=== PATIENT | male | born 1955 | race Caucasian/White ===

== ENCOUNTER 2018-07-17 11:13 | Emergency (ER) | payer OTHER ==
[~2018-07-17] VITALS: Ht 175.3 cm; Wt 83.9 kg
[~2018-07-17 11:13] MED LIST: CRESTOR10 MG PO; IBUPROFEN 800800 M1 PO; JANUMET XR 50-1 EAC1; MICARDIS 80 MG80 MG; NORCO 5-325 TA1 EACH PO; REQUIP3 MG; ZOLOFT50 MG
[2018-07-17] MEDS ORDERED: FARXIGA10 MG PO (11:39)
[2018-07-17] MEDS ORDERED: ZOFRAN4 MG PO (12:35)
[2018-07-17 13:06] VITALS: BP 145/84
== END 2018-07-17 13:07 | disposition home or self-care (01) ==
LOC: M.ERS 11:13
DX: S06.0X1A Concussion with loss of consciousness of 30 minutes or less, initial encounter (principal); S63.592A Other specified sprain of left wrist, initial encounter; F17.200 Nicotine dependence, unspecified, uncomplicated; E78.00 Pure hypercholesterolemia, unspecified; E11.9 Type 2 diabetes mellitus without complications; G25.81 Restless legs syndrome; Z90.79 Acquired absence of other genital organ(s); Z85.46 Personal history of malignant neoplasm of prostate; Y04.2XXA Assault by strike against or bumped into by another person, initial encounter; Y92.89 Other specified places as the place of occurrence of the external cause; Y99.0 Civilian activity done for income or pay; Y99.8 Other external cause status

== ENCOUNTER 2019-01-29 12:52 | Emergency (ER) | payer OTHER ==
[~2019-01-29] VITALS: Ht 177.8 cm; Wt 86.2 kg
[~2019-01-29 12:52] MED LIST changes: +FARXIGA10 MG PO; +ZOFRAN4 MG PO
[2019-01-29] MEDS ORDERED: TRULICITY0.75 MG/0. (13:07)
[2019-01-29] MEDS ORDERED: METFORMIN HCL500 M3 PO (13:07)
[2019-01-29] MEDS ORDERED: REQUIP 1 MG TABL1 M1 PO (13:07)
[2019-01-29] MEDS ORDERED: MEDROL DOSPAK21 TA1 PO (13:16)
[2019-01-29 13:18] VITALS: BP 147/101
== END 2019-01-29 13:19 | disposition home or self-care (01) ==
LOC: M.ERS 12:52
DX: L25.9 Unspecified contact dermatitis, unspecified cause (principal); E11.9 Type 2 diabetes mellitus without complications; E78.00 Pure hypercholesterolemia, unspecified; I10 Essential (primary) hypertension; G47.30 Sleep apnea, unspecified; G25.81 Restless legs syndrome; F17.210 Nicotine dependence, cigarettes, uncomplicated; Z90.79 Acquired absence of other genital organ(s); Z85.46 Personal history of malignant neoplasm of prostate

== ENCOUNTER 2021-07-02 16:42 | Emergency (ER) | payer OTHER ==
[~2021-07-02] VITALS: Ht 177.8 cm; Wt 83.9 kg
[~2021-07-02 16:42] MED LIST changes: +MEDROL DOSPAK21 TA1 PO; +METFORMIN HCL500 M3 PO; +REQUIP 1 MG TABL1 M1 PO; +TRULICITY0.75 MG/0.
[2021-07-02] MEDS ORDERED: BYDUREON B2 MG/0.85 (16:53)
[2021-07-02] MEDS ORDERED: CARBIDOPA-LEVO1 EAC5 PO (17:05)
[2021-07-02] MEDS ORDERED: MEDROLDOSEPACK PO ×2 (18:14→18:27)
[2021-07-02] MEDS ORDERED: PROAIR HFA8.5 GM INH ×2 (18:14→18:27)
[2021-07-02] MEDS ORDERED: AZITHROMYCIN 2250 MG PO (18:14)
[2021-07-02] MEDS ORDERED: ZPAK PO (18:27)
[2021-07-02 18:34] VITALS: BP 150/75
--- NOTE | 2021-07-03 12:11 | EKG ---
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: : 1955 Requested By: Js Marie Order Number: [id number] MD: John Tompkins Measurements Intervals [place] Rate: 119 P: 67 VT: 167 QRS: 18 QRSD: 72 T: 118 QT: 351 QTc: 494 Interpretive Statements Sinus tachycardia Borderline T wave abnormalities Borderline prolonged QT interval No previous ECG available for comparison Electronically Signed On 07-03-2021 12:10:49 [employer] by John Tompkins [email or web address] <ELECTRONICALLY SIGNED> By: John Tompkins MD, [facility] 07/03/21 1210 49 49 John Tompkins MD, FACC /EPI
== END 2021-07-02 18:35 | disposition home or self-care (01) ==
LOC: M.ERS 16:42
DX: J40 Bronchitis, not specified as acute or chronic (principal); J18.9 Pneumonia, unspecified organism; R11.2 Nausea with vomiting, unspecified; R19.7 Diarrhea, unspecified; E11.9 Type 2 diabetes mellitus without complications; E78.00 Pure hypercholesterolemia, unspecified; I10 Essential (primary) hypertension; F17.210 Nicotine dependence, cigarettes, uncomplicated; Z85.46 Personal history of malignant neoplasm of prostate; Z79.899 Other long term (current) drug therapy